=== PATIENT | female | born 1965 | race Caucasian/White ===

== ENCOUNTER 2016-11-17 19:03 | Emergency (ER) | payer OTHER ==
[2016-11-17 19:31] VITALS: BP 146/87; PULSE 95; TEMP 98.3; BMI 29.0
--- NOTE | 2016-11-17 20:08 | PDOC ---
History of Present Illness <Maggi Mackey - Last Filed: 11/17/16 21:51> - History of Present Illness Initial Comments: 11/17/16 22:12 Patient is a 50 year old female with no significant medical hx who is presenting to the ED with one day of nausea, vomiting, diarrhea, headache and chills. Patient reports that her symptoms started last night but worsened today. Today the patient woke up with abdominal cramping and multiple episodes of diarrhea. This evening around 7PM, after arriving in the ED, the patient had four episodes of vomiting. 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 The patient also endorses headaches and chills but no fever. Surgical Hx: x3 Social Hx: Denies alcohol, tobacco, or recreational drug use. Allergies: NKDA <Joanna Singh - Last Filed: 11/17/16 22:17> - General Chief Complaint: Nausea/Vomiting Stated Complaint: VOMITING/HEADACHE/ABD PAIN/CHILLS Time Seen by Provider: 11/17/16 19:43 Past History - Psycho/Social/Smoking Cessation Hx Suicidal Ideation: No Smoking History: Never smoked <Maggi Mackey - Last Filed: 11/17/16 21:51> <Joanna Singh - Last Filed: 11/17/16 22:17> - Past Medical History Allergies/Adverse Reactions: Allergies Allergy/AdvReac Type Severity Reaction Status Date / Time No Known Allergies Allergy Verified 11/17/16 19:29 Review of Systems - Review of Systems Comments:: 11/17/16 22:16 CONSTITUTIONAL: Present: chills Absent: fever, diaphoresis, generalized weakness, malaise, loss of appetite HEENT: Absent: rhinorrhea, nasal congestion, throat pain, throat swelling, difficulty swallowing, mouth swelling, ear pain, eye pain, visual changes CARDIOVASCULAR: Absent: chest pain, syncope, palpitations, irregular heart rate, lightheadedness , peripheral edema RESPIRATORY: Absent: cough, shortness of breath, dyspnea with exertion, orthopnea, wheezing, stridor, hemoptysis GASTROINTESTINAL: Present: abdominal cramping, nausea, vomiting, diarrhea Absent: abdominal distension, constipation, melena, hematochezia GENITOURINARY: Absent: dysuria, frequency, urgency, hesitancy, hematuria, flank pain, genital pain MUSCULOSKELETAL: Absent: myalgia, arthralgia, joint swelling SKIN: Absent: rash, itching, pallor HEMATOLOGIC/IMMUNOLOGIC: Absent: easy bleeding, easy bruising, lymphadenopathy, frequent infections ENDOCRINE: Absent: unexplained weight gain, unexplained weight loss, heat intolerance, cold intolerance NEUROLOGIC: Present: headache Absent: focal weakness or paresthesia, dizziness, unsteady gait, seizure, mental status changes, bladder or bowel incontinence. PSYCHIATRIC: Absent: anxiety, depression, suicidal or homicidal ideation, hallucinations <FranciscoOliverJoanna - Last Filed: 11/17/16 22:17> *Physical Exam - Vital Signs Last Vital Signs Temp Pulse Resp BP Pulse Ox 98.3 F 95 H 18 146/87 98 11/17/16 19:29 11/17/16 19:29 11/17/16 19:29 11/17/16 19:29 11/17/16 19:29 <Maggi Mackey - Last Filed: 11/17/16 21:51> - Vital Signs Last Vital Signs Temp Pulse Resp BP Pulse Ox 98.3 F 95 H 18 146/87 98 11/17/16 19:29 11/17/16 19:29 11/17/16 19:29 11/17/16 19:29 11/17/16 19:29 - Physical Exam Comments: 11/17/16 22:17 GENERAL: Well developed, well nourished. Awake and alert. No acute distress. HEENT: Normocephalic, atraumatic. PERRLA, EOMI. No conjunctival pallor. Sclera are non- icteric. Moist mucous membranes. Oropharynx is clear. NECK: Supple. Full ROM. No JVD. Carotid pulses 2+ and symmetric, without bruits. No thyromegaly. No lymphadenopathy. CARDIOVASCULAR: Regular rate and rhythm. No murmurs, rubs, or gallops. Distal pulses are 2+ and symmetric. PULMONARY: No evidence of respiratory distress. Lungs clear to auscultation bilaterally. No wheezing, rales or rhonchi. ABDOMINAL: Soft. Non-tender. Non-distended. No rebound or guarding. No organomegaly. Normoactive bowel sounds. MUSCULOSKELETAL: Normal range of motion at all joints. No bony deformities or tenderness. No CVA tenderness. EXTREMITIES: No cyanosis. No clubbing. No edema. No calf tenderness. SKIN: Warm and dry. Normal capillary refill. No rashes. No jaundice. NEUROLOGICAL: Alert, awake, appropriate. Cranial nerves 2-12 intact. Normal speech. Gait is normal without ataxia. PSYCHIATRIC: Cooperative. Good eye contact. Appropriate mood and affect. <FranciscoJoanna - Last Filed: 11/17/16 22:17> ED Treatment Course - LABORATORY CBC & Chemistry Diagram: 11/17/16 20:35 11/17/16 20:35 <NarendraMaggi Mara - Last Filed: 11/17/16 21:51> - LABORATORY CBC & Chemistry Diagram: 11/17/16 20:35 11/17/16 20:35 - ADDITIONAL ORDERS Additional order review: Laboratory Results 11/17/16 11/17/16 20:35 20:35 Sodium 142 Potassium 3.8 Chloride 106 Carbon Dioxide 29 Anion Gap 7 L BUN 16 Creatinine 0.5 L Creat Clearance w eGFR > 60 Random Glucose 105 Calcium 8.6 Total Bilirubin 0.5 AST 13 L ALT 27 Alkaline Phosphatase 101 Total Protein 6.9 Albumin 4.1 Lipase 114 Urine Color Ltyellow Urine Appearance Cloudy Urine pH 7.0 Ur Specific [place] 1.016 Urine Protein Negative Urine Glucose (UA) Negative Urine Ketones Negative Urine Blood Negative Urine Nitrite Negative Urine Bilirubin Negative Urine Urobilinogen Negative Ur Leukocyte Esterase 1+ H Urine RBC 2 Urine WBC 9 Ur Epithelial Cells Rare Urine Mucus Rare 11/17/16 20:35 RBC 4.72 MCV 84.9 MCHC 33.6 RDW 13.8 MPV 8.1 Neutrophils % 72.4 Lymphocytes % 21.7 Monocytes % 4.6 Eosinophils % 1.1 Basophils % 0.2 - Medications Given in the ED: ED Medications Discontinued Medications Generic Name Dose Route Start Last Admin Trade Name Freq PRN Reason Stop Dose Admin Acetaminophen 1,000 mg 11/17/16 20:09 11/17/16 20:18 Ofirmev Injection - IVPB 11/17/16 20:10 1,000 mg ONCE ONE Administration Sodium Chloride 1,000 mls @ 1,000 mls/hr 11/17/16 20:09 11/17/16 20:46 Normal Saline - IV 11/17/16 21:08 1,000 mls/hr ASDIR STA Administration Ondansetron HCl 4 mg 11/17/16 20:09 11/17/16 20:18 Zofran Injection IVPB 11/17/16 20:10 4 mg ONCE ONE Administration <Joanna Singh - Last Filed: 11/17/16 22:17> *DC/Admit/Observation/Transfer <Maggi Mackey - Last Filed: 11/17/16 21:51> - Attestations Scribe Attestion: 11/17/16 22:17 Documentation prepared by Joanna Singh, acting as medical receptionist biller for Maggi Mackey MD. <Joanna Singh - Last Filed: 11/17/16 22:17> Diagnosis at time of Disposition: Gastroenteritis - Discharge Dispostion Disposition: HOME Condition at time of disposition: Stable - Referrals Referrals: Carlos Gonsales [Primary Care Provider] - - Patient Instructions Printed Discharge Instructions: DI for Viral Gastroenteritis -- Adult Print Language: ARABIC
[2016-11-17] MEDS ORDERED: ONDANSETRON 4 MG/2 ML VIAL IVPB ONE (20:09)
[2016-11-17] MEDS ORDERED: ACETAMINOPHEN 1000 MG/100 ML VIAL (NON FORMULARY) IVPB ONE (20:09)
[2016-11-17] MEDS ORDERED: SODIUM CHLORIDE 1,000 ML IV STA (20:09)
[2016-11-17] MEDS ORDERED: ACETAMINOPHEN INJECTION 100 ML IVPB ONE (20:16)
[2016-11-17] MEDS ORDERED: ONDANSETRON 4 MG/2 ML VIAL ONE (20:17)
[2016-11-17 21:02] LABS: BASOPHIL 0.2 % (0-2.0); EOSINOPHIL 1.1 % (0-4.5); MCH 28.5 pg (25.7-33.7); MCHC 33.6 g/dl (32.0-36.0); MEAN CELL VOLUME 84.9 fl (80-96); MEAN PLT VOLUME 8.1 fl (7.5-11.1); NEUTROPHILS 72.4 % (42.8-82.8); PLATELET COUNT 247 K/MM3 (134-434); RDW 13.8 % (11.6-15.6); WHITE BLOOD COUNT 6.6 K/mm3 (4.0-10.0)
[2016-11-17 21:05] LABS: URINE APPEARANCE CLOUDY; URINE BILIRUBIN NEGATIVE (NEGATIVE); URINE BLOOD NEGATIVE (NEGATIVE); URINE COLOR LTYELLOW; URINE GLUCOSE (UA) NEGATIVE (NEGATIVE); URINE KETONE NEGATIVE (NEGATIVE); URINE NITRITE NEGATIVE (NEGATIVE); URINE PROTEIN NEGATIVE (NEGATIVE); URINE UROBILINOGEN NEGATIVE E.U./dl (0.2-1.0)
[2016-11-17 21:09] LABS: URINE LEUK ESTERASE 1+ (NEGATIVE)
[2016-11-17 21:10] LABS: URINE MUCUS RARE; URINE RBC 2 /hpf (0-3); URINE WBC 9 /hpf (3-5)
[2016-11-17 21:33] LABS: ALBUMIN 4.1 g/dl (3.4-5.0); ANION GAP 7 (8-16); CALCIUM 8.6 mg/dL (8.5-10.1); CO2 29 mmol/L (21-32); CREATININE 0.5 mg/dL (0.55-1.02); GLUCOSE,RANDOM 105 mg/dL (74-106); SGOT/AST 13 U/L (15-37); SGPT/ALT 27 U/L (12-78)
[2016-11-17 21:34] LABS: ALK PHOS 101 U/L (45-117); BILIRUBIN,TOTAL 0.5 mg/dL (0.2-1.0); TOT PROT 6.9 g/dl (6.4-8.2)
--- NOTE | 2016-11-18 22:55 | EKG ---
Test Reason : Blood Pressure : / mmHG Vent. Rate : 089 BPM Atrial Rate : 089 BPM P-R Int : 216 ms QRS Dur : 104 ms QT Int : 384 ms P-R-T Axes : 058 043 002 degrees QTc Int : 467 ms SINUS RHYTHM WITH 1ST DEGREE A-V BLOCK INCOMPLETE RIGHT BUNDLE BRANCH BLOCK BORDERLINE ECG WHEN COMPARED WITH ECG OF 22-MAY-2009 01:14, NO SIGNIFICANT CHANGE WAS FOUND Confirmed by KATIE GRANDE MD ([id number]) on 11/18/2016 10:55:43 PM Referred By: Confirmed By:KATIE GRANDE MD
== END 2016-11-17 21:54 | disposition home or self-care (01) ==
LOC: JER 19:03
PROC: 3E033NZ Introduction of Analgesics, Hypnotics, Sedatives into Peripheral Vein, Percutaneous Approach (ICD-10-PCS; principal; 2016-11-17)
PROC: 3E033GC Introduction of Other Therapeutic Substance into Peripheral Vein, Percutaneous Approach (ICD-10-PCS; 2016-11-17)
DX: K52.9 Noninfective gastroenteritis and colitis, unspecified (principal)
CPT/HCPCS: 36415; 80053; 81003; 81015; 83690; 85025; 93005; 93010; 96374; 96375; 99282-25

== ENCOUNTER → 2017-08-17 | Day surgery (SDC) | payer OTHER ==
--- NOTE | 2017-08-18 13:25 | PATH ---
Surgical Pathology Report Patient Name: MARI MCCALLUM [facility]. Rec. #: [id number] /Age/Gender: 1965 (Age: 51) / F Account: [id number] Location: [facility] Taken: 08/17/2017 Received: 08/17/2017 Reported: 08/18/2017 Physicians: Radha Willett CNM Specimen(s) Received A: LEFT BREAST CORE BIOPSY SUBAREOLAR B: LEFT BREAST CORE BIOPSY AT 3:00 Clinical History Nonpalpable lesion Ultrasound findings: Probably benign Final Diagnosis A. LEFT BREAST, SUBAREOLAR, ULTRASOUND GUIDED NEEDLE CORE BIOPSY: BENIGN BREAST TISSUE WITH FIBROCYSTIC CHANGES INCLUDING STROMAL FIBROSIS AND DUCTAL DILATATION. B. LEFT BREAST, 3:00, ULTRASOUND GUIDED NEEDLE CORE BIOPSY: BENIGN BREAST TISSUE WITH STROMAL FIBROSIS AND FIBROADENOMATOID CHANGES. Electronically Signed Maxx Phelps M.D. Gross Description A. Received in formalin labeled "left subareolar," are 4 mccain-yellow fragments of fibroadipose tissue ranging from 0.1-1.0 cm in length and averaging 0.1 cm diameter. The specimens are submitted in toto in one cassette. B. Received in formalin labeled "left 3:00," are 6 mccain-yellow fragments of fibroadipose tissue ranging from 0.2-1.0 cm in length and averaging 0.1 cm in diameter. The specimens are submitted in toto in one cassette. Total formalin fixation time: Between 8-15 hours 08/17/201708/17/2017
== END | disposition home or self-care (01) ==
LOC: JRADUS-SUR 08:07
PROVIDERS: ATTEND Midwife
PROC: 0HBU3ZX Excision of Left Breast, Percutaneous Approach, Diagnostic (ICD-10-PCS; principal; 2017-08-17)
DX: D24.2 Benign neoplasm of left breast (principal)
CPT/HCPCS: 19083; 19084; 87899; A4648

== ENCOUNTER 2017-11-10 10:05 | Emergency (ER) | payer OTHER ==
[2017-11-10 10:18] VITALS: BMI 33.4
[2017-11-10] MEDS ORDERED: SODIUM CHLORIDE 1,000 ML IV ONE (10:44)
[2017-11-10] MEDS ORDERED: morphine CARPU-JECT 4 MG/1 ML DISP.SYRIN IVPUSH ONE (10:47)
[2017-11-10] MEDS ORDERED: morphine SULFATE 4 MG/ML VIAL ONE (10:51)
[2017-11-10 11:12] LABS: BASO % 0.8 % (0-2.0); EOS % 0.5 % (0-4.5); HEMOGLOBIN 11.3 GM/dL (10.7-15.3); LYMPH % 15.3 % (8-40); MCH 27.9 pg (25.7-33.7); MCHC 34.3 g/dl (32.0-36.0); MEAN CELL VOLUME 81.3 fl (80-96); MEAN PLT VOLUME 7.4 fl (7.5-11.1); MONO % 6.2 % (3.8-10.2); NEUT % 77.2 % (42.8-82.8); PLATELET COUNT 326 K/MM3 (134-434); RBC 4.06 M/mm3 (3.60-5.2); RDW 13.6 % (11.6-15.6); WHITE BLOOD COUNT 8.4 K/mm3 (4.0-10.0)
[2017-11-10 11:13] LABS: URINE APPEARANCE SLCLOUDY; URINE BILIRUBIN NEGATIVE (<2.0 mg/dL); URINE BLOOD NEGATIVE (NEGATIVE); URINE COLOR DKYELLOW; URINE GLUCOSE (UA) NEGATIVE (NEGATIVE); URINE KETONE NEGATIVE (NEGATIVE); URINE LEUK ESTERASE NEGATIVE (NEGATIVE); URINE NITRITE NEGATIVE (NEGATIVE); URINE PROTEIN NEGATIVE (NEGATIVE); URINE UROBILINOGEN 4.0 E.U/dl mg/dL (0.2-1.0)
--- NOTE | 2017-11-10 11:22 | PDOC ---
History of Present Illness - General History Source: Patient Exam Limitations: No Limitations - History of Present Illness Initial Comments: 11/10/17 11:33 The patient is a 51 year old female with no significant past medical history who presents to the ED with complaints of worsening LLQ pain for the past three months. The patient states the pain began as intermittent but got significantly worse over the past two days. She complains of a non-radiating crampy pain that is 8/10 in severity. It is worse with eating and deep inspiration, and has been accompanied by constipation and headaches. She reports a 16 lb weight loss when she went to her PCP in July. She reports a decreased appetite but denies any urinary symptoms. She also reports a recent visit to [place] in September for 12 days. The patient adds that she saw her PCP last Thursday regarding her symptoms and is waiting to hear back regarding her blood test results. Denies any fevers or chills. PCP: Dr. Rodriguez <Soco Johnson - Last Filed: 11/10/17 11:43> <Park Chen - Last Filed: 11/10/17 15:36> <Alvaro Flores - Last Filed: 11/10/17 17:20> - General Chief Complaint: Pain, Acute Stated Complaint: LT SIDE PAIN Time Seen by Provider: 11/10/17 10:42 Past History <Soco Johnson - Last Filed: 11/10/17 11:43> <Park Chen - Last Filed: 11/10/17 15:36> - Past Medical History COPD: No DVT: No Dementia: No - Immunization History Immunization Up to Date: Yes - Suicide/Smoking/Psychosocial Hx Smoking History: Never smoked Have you smoked in the past 12 months: No Information on smoking cessation initiated: No Hx Alcohol Use: No Drug/Substance Use Hx: No Substance Use Type: None <Alvaro Flores - Last Filed: 11/10/17 17:20> - Past Medical History Allergies/Adverse Reactions: Allergies Allergy/AdvReac Type Severity Reaction Status Date / Time No Known Allergies Allergy Verified 11/10/17 10:14 Home Medications: Ambulatory Orders NK [No Known Home Medication] 11/10/17 Review of Systems - Review of Systems Constitutional: Yes: Unintentional Wgt. Loss. No: Chills, Fever, Night Sweats HEENTM: No: Recent change in vision Respiratory: No: Cough, Shortness of Breath Cardiac (ROS): No: Chest Pain ABD/GI: Yes: Constipated, Poor Appetite. No: Nausea, Vomiting : No: Burning, Dysuria, Frequency Neurological: No: Headache All Other Systems: Reviewed and Negative <Alvaro Flores - Last Filed: 11/10/17 17:20> *Physical Exam - Vital Signs Last Vital Signs Temp Pulse Resp BP Pulse Ox 98.4 F 91 H 18 109/64 100 11/10/17 10:14 11/10/17 10:14 11/10/17 10:14 11/10/17 10:14 11/10/17 10:14 - Physical Exam Comments: 11/10/17 11:34 GENERAL: The patient is awake, alert, and fully oriented, in no acute distress. HEAD: Normal with no signs of trauma. EYES: Pupils equal, round and reactive to light, extraocular movements intact, sclera anicteric, conjunctiva clear with no pallor. ENT: Ears normal, nares patent, oropharynx clear without exudates. Moist mucous membranes. NECK: Normal range of motion, supple without lymphadenopathy, JVD, or masses. LUNGS: Breath sounds equal, clear to auscultation bilaterally. No wheeze/ crackles. HEART: Regular rate and rhythm, normal S1 and S2 without murmur or rub. ABDOMEN: Fullness in LLQ, tender with guarding, referred pain with rebound. Soft /nontender/nondistended. BS wnl. No palpable masses. No hepatosplenomegaly. EXTREMITIES: Normal range of motion, no edema. No clubbing or cyanosis. No cords, erythema, or tenderness. NEUROLOGICAL: Cranial nerves II through XII grossly intact. Normal speech, normal gait. PSYCH: Normal mood, normal affect. SKIN: Warm, Dry, normal turgor, no rashes or lesions noted. <AlexSoco - Last Filed: 11/10/17 11:43> - Vital Signs Last Vital Signs Temp Pulse Resp BP Pulse Ox 98.9 F 76 18 127/78 98 11/10/17 15:11 11/10/17 15:11 11/10/17 15:11 11/10/17 15:11 11/10/17 15:11 <Park Chen - Last Filed: 11/10/17 15:36> - Vital Signs Last Vital Signs Temp Pulse Resp BP Pulse Ox 98.4 F 91 H 18 109/64 100 11/10/17 10:14 11/10/17 10:14 11/10/17 10:14 11/10/17 10:14 11/10/17 10:14 <Alvaro Flores - Last Filed: 11/10/17 17:20> Heart Score/ECG Review #1 General ECG Interpretation: Sinus Rhythm, Normal Rate (82), Normal Intervals ( qtc 436), No acute ischemic changes (TWI III/AVF, V1-V4) <Alvaro Flores - Last Filed: 11/10/17 17:20> ED Treatment Course - LABORATORY CBC & Chemistry Diagram: 11/10/17 11:00 11/10/17 11:00 - ADDITIONAL ORDERS Additional order review: Laboratory Results 11/10/17 11/10/17 11:00 11:00 PT with INR 14.10 H INR 1.25 H Urine Color Dkyellow Urine Appearance Slcloudy Urine pH 5.0 D Ur Specific [place] 1.023 Urine Protein Negative Urine Glucose (UA) Negative Urine Ketones Negative Urine Blood Negative Urine Nitrite Negative Urine Bilirubin Negative Urine Urobilinogen 4.0 e.u/dl H Ur Leukocyte Esterase Negative 11/10/17 11:00 RBC 4.06 MCV 81.3 MCHC 34.3 RDW 13.6 MPV 7.4 L Neutrophils % 77.2 Lymphocytes % 15.3 D Monocytes % 6.2 Eosinophils % 0.5 Basophils % 0.8 D - Medications Given in the ED: ED Medications Discontinued Medications Generic Name Dose Route Start Last Admin Trade Name Freq PRN Reason Stop Dose Admin Morphine Sulfate 4 mg 11/10/17 10:47 11/10/17 11:09 Morphine Injection - IVPUSH 11/10/17 10:48 4 mg ONCE ONE Administration <Soco Johnson - Last Filed: 11/10/17 11:43> - LABORATORY CBC & Chemistry Diagram: 11/10/17 11:00 11/10/17 11:00 - ADDITIONAL ORDERS Additional order review: Laboratory Results 11/10/17 11/10/17 11/10/17 11:11 11:00 11:00 PT with INR INR Sodium Potassium Chloride Carbon Dioxide Anion Gap BUN Creatinine Creat Clearance w eGFR Random Glucose Lactic Acid 0.8 Calcium Magnesium Total Bilirubin AST ALT Alkaline Phosphatase Total Protein Albumin Lipase Serum , Qual Negative Urine Color Urine Appearance Urine pH Ur Specific [place] Urine Protein Urine Glucose (UA) Urine Ketones Urine Blood Urine Nitrite Urine Bilirubin Urine Urobilinogen Ur Leukocyte Esterase Blood Type B POSITIVE Antibody Screen Negative 11/10/17 11/10/17 11/10/17 11:00 11:00 11:00 PT with INR 14.10 H INR 1.25 H Sodium 138 Potassium 3.9 Chloride 104 Carbon Dioxide 28 Anion Gap 6 L BUN 16 Creatinine 0.5 L Creat Clearance w eGFR > 60 Random Glucose 87 Lactic Acid Calcium 8.4 L Magnesium 2.3 Total Bilirubin 0.4 AST 12 L ALT 15 Alkaline Phosphatase 103 Total Protein 6.9 Albumin 3.3 L Lipase 96 Serum , Qual Urine Color Dkyellow Urine Appearance Slcloudy Urine pH 5.0 D Ur Specific [place] 1.023 Urine Protein Negative Urine Glucose (UA) Negative Urine Ketones Negative Urine Blood Negative Urine Nitrite Negative Urine Bilirubin Negative Urine Urobilinogen 4.0 e.u/dl H Ur Leukocyte Esterase Negative Blood Type Antibody Screen 11/10/17 11:00 RBC 4.06 MCV 81.3 MCHC 34.3 RDW 13.6 MPV 7.4 L Neutrophils % 77.2 Lymphocytes % 15.3 D Monocytes % 6.2 Eosinophils % 0.5 Basophils % 0.8 D - Medications Given in the ED: ED Medications Discontinued Medications Generic Name Dose Route Start Last Admin Trade Name Freq PRN Reason Stop Dose Admin Sodium Chloride 1,000 mls @ 1,000 mls/hr 11/10/17 10:44 11/10/17 11:08 Normal Saline - IV 11/10/17 11:43 1,000 mls/hr ONCE ONE Administration Morphine Sulfate 4 mg 11/10/17 10:47 11/10/17 11:09 Morphine Injection - IVPUSH 11/10/17 10:48 4 mg ONCE ONE Administration <Park Chen - Last Filed: 11/10/17 15:36> - LABORATORY CBC & Chemistry Diagram: 11/10/17 11:00 11/10/17 11:00 - RADIOLOGY Radiology Studies Ordered: Category Date Time Status ABDOMEN & PELVIS CT WITH CONTR [CT] Stat CT Scan 11/10/17 10:46 Ordered - Medications Given in the ED: ED Medications Discontinued Medications Generic Name Dose Route Start Last Admin Trade Name Deborah PRN Reason Stop Dose Admin Morphine Sulfate 4 mg 11/10/17 10:47 11/10/17 11:09 Morphine Injection - IVPUSH 11/10/17 10:48 4 mg ONCE ONE Administration <Alvaro Flores - Last Filed: 11/10/17 17:20> Medical Decision Making - Medical Decision Making 11/10/17 15:[address] Otto of radiology. <Park Chen - Last Filed: 11/10/17 15:36> - Medical Decision Making 11/10/17 11:24 A portion of this note was documented by scribe services under my direction. I have reviewed the details of the note, within reason, and agree with the documentation with the following case summary and management plan written by me. 51-year-old female with no significant past medical history presents for evaluation of left lower quadrant pain. Patient has had discomfort in this area for several months, worsened over the last few days. Reports decreased appetite and weight loss over the last few months, intermittent constipation without bloody stool or diarrhea. No fevers or chills. Never had a colonoscopy. Saw Dr. Rodriguez for the first time last week and was scheduled for outpatient CAT scan next week and GI follow-up next month. Afebrile Vital signs normal Generally well-appearing Abdomen is soft and nondistended, tender with exquisite guarding and rebound in the left lower quadrant, question palpable fullness 51-year-old female with worsening left lower quadrant pain, peritoneal findings on examination. Presentation is concerning for infectious/inflammatory process, rule out neoplasm. Labs, urinalysis Pain control, IV fluids CT of the abdomen and pelvis Reassess 11/10/17 12:13 No leukocytosis, chemistries including LFTs and lipase, urinalysis within normal limits. Awaiting CAT scan. feels much better after morphine. 11/10/17 16:27 Descending colon wall thickening with 4cm surrounding collection suspicious for perforation. Remains HD stable, well appearing, pain improved. Started abx, admitted to [facility] team covering Dr. Rodriguez. Signout given to Dr. Arroyo 11/10/17 17:03 Admitting team discussed with Gen Surg [employer] systems integration specialist Dr. Vásquez, requesting transfer for colorectal onc evaluation given suspicion for neoplasm. Case discussed with Gen Surg at [facility], Dr. Richards, who accepts for transfer to ED. Case discussed with ED attending Dr. Staples. <Alvaro Flores - Last Filed: 11/10/17 17:20> *DC/Admit/Observation/Transfer - Attestations Scribe Attestion: 11/10/17 11:34 Documentation prepared by Soco Johnson, acting as vice president medical affairs for Alvaro Flores MD. <Soco Johnson - Last Filed: 11/10/17 11:43> <Park Chen - Last Filed: 11/10/17 15:36> - Discharge Dispostion Admit: Yes - Transfer to Acute Care Facility Receiving Facility: [facility] Accepting Physician:: Maurice (surg)Jhoan (ER) <Alvaro Flores - Last Filed: 11/10/17 17:20> Diagnosis at time of Disposition: Abdominal pain, left lower quadrant - Discharge Dispostion Condition at time of disposition: Fair - Referrals Referrals: Thu Shine MD [Primary Care Provider] -
[2017-11-10 11:25] LABS: INR 1.25 (0.82-1.09); PROTHROMBIN TIME (PATIENT) 14.1 SEC (9.7-13.0)
[2017-11-10 11:52] LABS: ALBUMIN 3.3 g/dl (3.4-5.0); ANION GAP 6 (8-16); BLOOD UREA NITROGEN 16 mg/dL (7-18); CALCIUM 8.4 mg/dL (8.5-10.1); CHLORIDE 104 mmol/L (98-107); CO2 28 mmol/L (21-32); GLUCOSE,RANDOM 87 mg/dL (74-106); LIPASE 96 U/L (73-393); MAGNESIUM 2.3 mg/dL (1.8-2.4); POTASSIUM 3.9 mmol/L (3.5-5.1); SGOT/AST 12 U/L (15-37); SODIUM 138 mmol/L (136-145)
[2017-11-10 11:54] LABS: ALK PHOS 103 U/L (45-117); BILIRUBIN,TOTAL 0.4 mg/dL (0.2-1.0); CREATININE 0.5 mg/dL (0.55-1.02); SGPT/ALT 15 U/L (12-78); TOT PROT 6.9 g/dl (6.4-8.2)
--- NOTE | 2017-11-10 13:39 | EKG ---
Test Reason : Blood Pressure : / mmHG Vent. Rate : 082 BPM Atrial Rate : 082 BPM P-R Int : 180 ms QRS Dur : 098 ms QT Int : 374 ms P-R-T Axes : 056 017 001 degrees QTc Int : 436 ms NORMAL SINUS RHYTHM LOW VOLTAGE QRS CANNOT RULE OUT ANTERIOR INFARCT , AGE UNDETERMINED ABNORMAL ECG WHEN COMPARED WITH ECG OF 17-NOV-2016 21:08, [place] INTERVAL HAS DECREASED Confirmed by MD REANNA, KEITH ([id number]) on 11/10/2017 1:38:38 PM Referred By: Confirmed By:KEITH FORTE MD
[2017-11-10] MEDS ORDERED: PIPERACILLIN/TAZOB 4.5 GM 4.5 GM in DEXTROSE 5%-WATER 100 ML IVPB ONE (15:36)
[2017-11-10] MEDS ORDERED: PIPERACILLIN/TAZOB 4.5 GM 4.5 GM/100 ML BAG IVPB ONE (16:10)
--- NOTE | 2017-11-10 16:11 | HP ---
CHIEF COMPLAINT: Ab pain PCP: Dr. Rodriguez HISTORY OF PRESENT ILLNESS: 51 yo female with no significant pmh who presents with worsening LLQ pain over last two days in the setting of three months of progressive LLQ pain and constipation. Pt endorses 30 lb weight loss since march of last year. Pt states she began having LLQ pain 3 months ago, which she describe as sharp and crampy, with associated L flank pain, worsened by eating and deep inspiration. Pt states this pain has become distinctly worse in the last two days, rating it 8/10 in severity, sharp/crampy with no radiation. Pt endorses chronic constipation for last three months, as well as decreased stool caliber. Pt states her stools have otherwise been normal, with no blood, color changes, pain with defection or diarrhea. Pt also states her appetite has been decreasing progressively over last few months as well. No recent diet changes. Recently visited [place] in September. No prior hx of GI symptoms and no family hx of CA or GI conditions. Denies any MOLINA, CP, SOB, cough, f/c/n/v, LE edema, focal neuro deficits. Denies melena, hematochezia, dysuria or changes in bladder habits. Recently seen by PCP last week for same symptoms, awaiting blood tests and outpt imaging evaluation. ER course was notable for: (1)Morphine 4mg IV, NS 1L (2)Normal labs, vitals (3) Recent Travel: [place] in september for 12 days PAST MEDICAL HISTORY: None PAST SURGICAL HISTORY: C-sections x3 Social History: Smoking:No Alcohol: no Drugs: no Family History: No family hx of any conditions Allergies No Known Allergies Allergy (Verified 11/10/17 10:14) HOME MEDICATIONS: Home Medications Medication Instructions Recorded NK [No Known Home Medication] 11/10/17 REVIEW OF SYSTEMS CONSTITUTIONAL: loss of appetite, weight change Absent: fever, chills, diaphoresis, generalized weakness, malaise, HEENT: Absent: rhinorrhea, nasal congestion, throat pain, throat swelling, difficulty swallowing, mouth swelling, ear pain, eye pain, visual changes CARDIOVASCULAR: Absent: chest pain, syncope, palpitations, irregular heart rate, lightheadedness , peripheral edema RESPIRATORY: Absent: cough, shortness of breath, dyspnea with exertion, orthopnea, wheezing, stridor, hemoptysis GASTROINTESTINAL: abdominal pain, constipation, Absent: abdominal distension, nausea, vomiting, diarrhea, melena, hematochezia GENITOURINARY: flank pain, Absent: dysuria, frequency, urgency, hesitancy, hematuria, genital pain MUSCULOSKELETAL: Absent: myalgia, arthralgia, joint swelling, back pain, neck pain SKIN: Absent: rash, itching, pallor HEMATOLOGIC/IMMUNOLOGIC: Absent: easy bleeding, easy bruising, lymphadenopathy, frequent infections ENDOCRINE: Absent: unexplained weight gain, unexplained weight loss, heat intolerance, cold intolerance NEUROLOGIC: Absent: headache, focal weakness or paresthesias, dizziness, unsteady gait, seizure, mental status changes, bladder or bowel incontinence PHYSICAL EXAMINATION Vital Signs - 24 hr 11/10/17 11/10/17 10:14 15:11 Temperature 98.4 F 98.9 F Pulse Rate 91 H Pulse Rate [ 76 Left Radial] Respiratory 18 18 Rate Blood Pressure 109/64 Blood Pressure 127/78 [Right Arm] O2 Sat by Pulse 100 98 Oximetry (%) GENERAL: Young woman, NAD, A&Ox3 HEAD: Normal with no signs of trauma. EYES: Pupils equal, round and reactive to light, extraocular movements intact, sclera anicteric, conjunctiva clear. No lid lag. EARS, NOSE, THROAT: Ears normal, nares patent, oropharynx clear without exudates. Moist mucous membranes. NECK: Normal range of motion, supple without lymphadenopathy, JVD, or masses. LUNGS: Breath sounds equal, clear to auscultation bilaterally. No wheezes, and no crackles. No accessory muscle use. HEART: Regular rate and rhythm, normal S1 and S2 without murmur, rub or gallop. ABDOMEN: TTP in LLQ, fullness in the LLQ. Positive rebound tenderness on L side. Soft, non-distended. normoactive bowel sounds, no guarding, no rebound, no masses. No hepatomegaly or splenomegaly. MUSCULOSKELETAL: Normal range of motion at all joints. No bony deformities or tenderness. L CVA tenderness noted UPPER EXTREMITIES: 2+ pulses, warm, well-perfused. No cyanosis. No clubbing. No peripheral edema. LOWER EXTREMITIES: 2+ pulses, warm, well-perfused. No calf tenderness. No peripheral edema. NEUROLOGICAL: Cranial nerves II-XII intact. Normal speech. Normal gait. PSYCHIATRIC: Cooperative. Good eye contact. Appropriate mood and affect. Laboratory Results - last 24 hr CBC, BMP 11/10/17 11:00 11/10/17 11:00 11/10/17 11/10/17 11/10/17 11:00 11:00 11:00 WBC 8.4 RBC 4.06 Hgb 11.3 D Hct 33.0 D MCV 81.3 MCH 27.9 MCHC 34.3 RDW 13.6 Plt Count 326 D MPV 7.4 L Neutrophils % 77.2 Lymphocytes % 15.3 D Monocytes % 6.2 Eosinophils % 0.5 Basophils % 0.8 D PT with INR 14.10 H INR 1.25 H Sodium Potassium Chloride Carbon Dioxide Anion Gap BUN Creatinine Creat Clearance w eGFR Random Glucose Lactic Acid Calcium Magnesium Total Bilirubin AST ALT Alkaline Phosphatase Total Protein Albumin Lipase Serum , Qual Urine Color Dkyellow Urine Appearance Slcloudy Urine pH 5.0 D Ur Specific [place] 1.023 Urine Protein Negative Urine Glucose (UA) Negative Urine Ketones Negative Urine Blood Negative Urine Nitrite Negative Urine Bilirubin Negative Urine Urobilinogen 4.0 e.u/dl H Ur Leukocyte Esterase Negative Blood Type Antibody Screen 11/10/17 11/10/17 11/10/17 11:00 11:00 11:00 WBC RBC Hgb Hct MCV MCH MCHC RDW Plt Count MPV Neutrophils % Lymphocytes % Monocytes % Eosinophils % Basophils % PT with INR INR Sodium 138 Potassium 3.9 Chloride 104 Carbon Dioxide 28 Anion Gap 6 L BUN 16 Creatinine 0.5 L Creat Clearance w eGFR > 60 Random Glucose 87 Lactic Acid 0.8 Calcium 8.4 L Magnesium 2.3 Total Bilirubin 0.4 AST 12 L ALT 15 Alkaline Phosphatase 103 Total Protein 6.9 Albumin 3.3 L Lipase 96 Serum , Qual Urine Color Urine Appearance Urine pH Ur Specific [place] Urine Protein Urine Glucose (UA) Urine Ketones Urine Blood Urine Nitrite Urine Bilirubin Urine Urobilinogen Ur Leukocyte Esterase Blood Type B POSITIVE Antibody Screen Negative 11/10/17 11:11 WBC RBC Hgb Hct MCV MCH MCHC RDW Plt Count MPV Neutrophils % Lymphocytes % Monocytes % Eosinophils % Basophils % PT with INR INR Sodium Potassium Chloride Carbon Dioxide Anion Gap BUN Creatinine Creat Clearance w eGFR Random Glucose Lactic Acid Calcium Magnesium Total Bilirubin AST ALT Alkaline Phosphatase Total Protein Albumin Lipase Serum , Qual Negative Urine Color Urine Appearance Urine pH Ur Specific [place] Urine Protein Urine Glucose (UA) Urine Ketones Urine Blood Urine Nitrite Urine Bilirubin Urine Urobilinogen Ur Leukocyte Esterase Blood Type Antibody Screen EKG: NSR, RATE 82, qtc 436, TWIs in III/AVF, V1-V4 Ab/pelvis CT 11/10 - 1. Irregular, masslike wall thickening centered in the distal descending colon as described above is extremely suspicious for malignant neoplasm. Contained perforation with an approximately 4.5 x 4.0 x 4.3 cm left lower quadrant collection and possible sinus tract. 2. Left lower quadrant mesenteric and retroperitoneal lymphadenopathy. 3. Several hepatic cystic lesions measuring up to 3.6 x 5.5 cm. Multiple subcentimeter hypodense liver lesions are indeterminant. Complete characterization requires multiphase contrast-enhanced MRI or CT of the liver. 4. Please refer to the report above for other findings. ASSESSMENT/PLAN: 51 yo female with no significant pmh who presents with worsening LLQ pain over last two days in the setting of three months of progressive LLQ pain and constipation. Pt endorses 30 lb weight loss since march of last year. #LLQ mass/descending colon perforation - CT confirmed - IVFs - GI, ID, ONC and General surgery consult - abx coverage - Morphine IV for pain control - Zofran for N/V - NPO, bowel rest #Constipation - likely secondary to possible neoplasm in descending colon #Weight loss - 30lbs over since mar 2017 - NPO for now - likely secondary to suspected neoplasm FEN IVFS Daily lytes NPO PPX HSQ PPI Plan discussed with attending, Dr. Tracy Bledsoe, PGY1 Hospitalist Screening - Colonoscopy Questionnaire Colonoscopy Questionnaire: Colonoscopy Questionnaire
[2017-11-10] MEDS ORDERED: ACETAMINOPHEN INJECTION 100 ML IVPB ONE (17:48)
[2017-11-10] MEDS ORDERED: ACETAMINOPHEN 1000 MG/100 ML VIAL (NON FORMULARY) IVPB ONE (18:00)
[2017-11-10 19:15] VITALS: BP 116/62; PULSE 78; TEMP 99.2
== END 2017-11-10 19:14 | disposition short-term general hospital (02) ==
LOC: JER 10:05 → JERBED 16:34 → UNDOADMIN 16:34 → JER 19:14
PROC: 3E0337Z Introduction of Electrolytic and Water Balance Substance into Peripheral Vein, Percutaneous Approach (ICD-10-PCS; principal; 2017-11-10)
PROC: 3E03329 Introduction of Other Anti-infective into Peripheral Vein, Percutaneous Approach (ICD-10-PCS; 2017-11-10)
PROC: 3E033NZ Introduction of Analgesics, Hypnotics, Sedatives into Peripheral Vein, Percutaneous Approach (ICD-10-PCS; 2017-11-10)
PROC: 3E033NZ Introduction of Analgesics, Hypnotics, Sedatives into Peripheral Vein, Percutaneous Approach (ICD-10-PCS; 2017-11-10)
DX: R10.32 Left lower quadrant pain (principal); K59.00 Constipation, unspecified; R63.4 Abnormal weight loss
CPT/HCPCS: 36415; 74177-TC; 80053; 81003; 83605; 83690; 83735; 84703; 85025; 85610; 86850; 86900; 86901; 93005; 93010; 96361; 96365; 96375; 99285-25; J0131; J7030

== ENCOUNTER 2017-12-02 11:08 | Emergency (ER) | payer OTHER ==
[2017-12-02 11:26] VITALS: BMI 26.4
--- NOTE | 2017-12-02 11:36 | PDOC ---
History of Present Illness - History of Present Illness Initial Comments: 12/02/17 11:55 The patient is a 52 year old female, with a significant past medical history of colon CA (recently diagnosed s/p hemicolectomy on 11/18/17), who presents to the emergency department with sudden onset of nausea and lightheadedness this morning while lying in bed. She reports feeling short of breath at the onset of her symptoms, but denies SOB now. She also reports pain to her left anterior shoulder and explicitly states the pain is not in my chest. She states she has been feeling well since her discharge from the hospital on 11/24/17. She reports gradually increasing her meal sizes, as well as, good bowel movements and passing gas from above and below since her discharge. She states she felt as if she were going to faint this morning. The son at bedside acts as digital traffic coordinator and partial historian. He reports his mother is scheduled to start chemotherapy on December 22. She denies chest pain, headache and dizziness. She denies fever, chills, abdominal pain, diarrhea, vomiting, and constipation. She denies dysuria, frequency, urgency and hematuria. Allergies: NKDA Social history: Denies toxic habits PCP: Dr. Rodriguez <Jane Terrazas - Last Filed: 12/02/17 11:54> - General History Source: Patient Exam Limitations: No Limitations <Dori Mir - Last Filed: 12/03/17 12:03> - General Chief Complaint: Nausea Stated Complaint: NAUSEA Time Seen by Provider: 12/02/17 11:35 Past History <Jane Terrazas - Last Filed: 12/02/17 11:54> - Past Medical History Cancer: Yes (colon) COPD: No DVT: No Dementia: No - Immunization History Immunization Up to Date: Yes - Suicide/Smoking/Psychosocial Hx Smoking History: Never smoked Have you smoked in the past 12 months: No Hx Alcohol Use: No Drug/Substance Use Hx: No Substance Use Type: None <Dori Mir - Last Filed: 12/03/17 12:03> - Past Medical History Allergies/Adverse Reactions: Allergies Allergy/AdvReac Type Severity Reaction Status Date / Time No Known Allergies Allergy Verified 12/02/17 11:23 Home Medications: Ambulatory Orders Enoxaparin [Lovenox -] 40 mg SQ DAILY 12/02/17 Review of Systems - Review of Systems Able to Perform ROS?: Yes Comments:: 12/02/17 11:56 CONSTITUTIONAL: Absent: fever, no chills, no fatigue EYES: Absent: visual changes ENT: Absent: ear pain, no sore throat CARDIOVASCULAR: (+) lightheaded, Absent: chest pain, no palpitations RESPIRATORY: Absent: cough, no SOB GASTROINTESTINAL: (+) nausea, Absent: abdominal pain, no vomiting, no constipation, no diarrhea GENITOURINARY: Absent: dysuria, no frequency, no hematuria MUSCULOSKELETAL: (+) left anterior shoulder pain. Absent: back pain, no myalgia SKIN: Absent: rash NEURO: Absent: headache <Jane Terrazas - Last Filed: 12/02/17 11:54> *Physical Exam - Vital Signs Last Vital Signs Temp Pulse Resp BP Pulse Ox 98.6 F 82 18 111/71 100 12/02/17 11:23 12/02/17 11:23 12/02/17 11:23 12/02/17 11:23 12/02/17 11:23 - Physical Exam Comments: 12/02/17 12:00 GENERAL: The patient is in no acute distress. HEAD: Normal with no signs of trauma. EYES: PERRLA, EOMI, sclera anicteric, conjunctiva clear. ENT: Ears normal, nares patent, oropharynx clear without exudates. Moist mucous membranes. NECK: Normal range of motion, supple without lymphadenopathy, JVD, or masses. LUNGS: Breath sounds equal, clear to auscultation bilaterally. No wheezes, and no crackles. HEART:Regular rate and rhythm, normal S1 and S2 without murmur, rub or gallop. ABDOMEN: Soft, nontender, normoactive bowel sounds. No guarding, no rebound. No masses palpable. EXTREMITIES: Normal range of motion, no edema. No clubbing or cyanosis. No erythema, or tenderness. NEUROLOGICAL: Cranial nerves II through XII grossly intact. Normal speech. No focal neurological deficits. MUSCULOSKELETAL: Back non-tender to palpation, no CVA tenderness SKIN: (+) well healed surgical scars to abdomen. Warm, Dry, normal turgor, no rashes or lesions noted. <Jane Terrazas - Last Filed: 12/02/17 11:54> - Vital Signs Last Vital Signs Temp Pulse Resp BP Pulse Ox 98.6 F 82 18 111/71 100 12/02/17 11:23 12/02/17 11:23 12/02/17 11:23 12/02/17 11:23 12/02/17 11:23 <Dori Mir - Last Filed: 12/03/17 12:03> ED Treatment Course - LABORATORY CBC & Chemistry Diagram: 12/02/17 12:16 12/02/17 12:16 <Dori Mir - Last Filed: 12/03/17 12:03> Medical Decision Making - Medical Decision Making Mr. Mcmullen 52-year-old female who is otherwise prior to a recent diagnosis of colon cancer healthy who presents to the emergency department with a complaint of lightheadedness. Patient states that she is almost 2 weeks status post left hemicolectomy for perforated colon mass. Patient states she has been able to tolerate foods and liquids, has had normal bowel movements, passing gas, has minimal pain in the abdomen. This morning she awoke and noted that she felt lightheaded/dizzy. She denies vertigo. She denies headache, abdominal pain, extremity pain. She has some sort of discomfort in the left chest, does feel somewhat short of breath. No fever, no chills. She did have breakfast this morning. Patient states her symptoms do not worsen necessarily with changing her position from seated to standing On examination: Regular rate and rhythm Lungs are clear Normal bowel sounds, abdomen is soft, nondistended. She is minimally tender in the left lower quadrant. She has well-healed surgical scars throughout. Closed but is not limited to: Anemia, dehydration, hypoglycemia, arrhythmia, ACS, PE (less likely). Will do: Labs EKG Orthostatic vital signs IV hydration Consider CTA chest EKG: NSR rate of 73bpm, axis nml, intervals nml, no ST elevation or depression, t waves upright 12/02/17 12:36 Laboratory Tests 12/02/17 12:16 WBC 6.2 Hgb 11.1 Hct 32.8 Plt Count 437 H D Neutrophils % 69.7 Lymphocytes % 21.3 D 12/02/17 13:51 Laboratory Tests 12/02/17 12/02/17 12:16 12:16 PT with INR 11.90 INR 1.05 BUN 17 Creatinine 0.5 L Creatine Kinase 36 Troponin I < 0.02 upon re assessment, pt states she feels much better Dizziness is better Unclear cause of pt initial presentation Will still do CTA If negative, pt can be discharged to home 12/02/17 15:04 Pt went to devops engineer called to say that this patient had an allergic reaction to prior Ct I do not believe this should hinder imaging Pt at this time does not want to repeat CT Pt feels better, no hypoxia, no tachycardia, presentation seems to be lower risk for PE??? Will sign out AMA Note: The patient insists on leaving the emergency dept and is signing out against medical advice. The patient understands the risks and complications that may result from the refusal of medical care and admission which includes and permanent disability. The patient has the mental capacity of understanding the risks of refusing care and is capable of making an informed decision. The patient was instructed to return to the emergency department should she change her mind regarding medical care or should her condition worsen. The patient signed the Against Medical Advice form. <Dori Mir - Last Filed: 12/03/17 12:03> *DC/Admit/Observation/Transfer - Attestations Scribe Attestion: 12/02/17 12:00 Documentation prepared by Jane Terrazas, acting as medical lab scientist for Dori Mir MD <Jane Terrazas - Last Filed: 12/02/17 11:54> - Discharge Dispostion Decision to Admit order: No <Dori Mir - Last Filed: 12/03/17 12:03> Diagnosis at time of Disposition: Dizziness - Discharge Dispostion Disposition: AGAINST MEDICAL ADVICE Condition at time of disposition: Stable - Referrals Referrals: Thu Shine MD [Primary Care Provider] - - Patient Instructions Printed Discharge Instructions: DI for Dizziness-Nonvertigo Additional Instructions: Thank you for coming in to the ER today Please be sure to follow up with your primary care physician and your surgeon Return to the ER for any other concerns or complaint
[2017-12-02] MEDS ORDERED: ONDANSETRON 4 MG/2 ML VIAL IVPUSH ONE (11:38)
[2017-12-02] MEDS ORDERED: SODIUM CHLORIDE 1,000 ML IV STA (11:38)
[2017-12-02] MEDS ORDERED: ONDANSETRON 4 MG/2 ML VIAL ONE (12:09)
[2017-12-02 12:23] LABS: BASO % 0.8 % (0-2.0); EOS % 3.2 % (0-4.5); HEMATOCRIT 32.8 % (32.4-45.2); HEMOGLOBIN 11.1 GM/dL (10.7-15.3); LYMPH % 21.3 % (8-40); MCH 27.9 pg (25.7-33.7); MCHC 33.8 g/dl (32.0-36.0); MEAN CELL VOLUME 82.7 fl (80-96); MEAN PLT VOLUME 7.3 fl (7.5-11.1); NEUT % 69.7 % (42.8-82.8); PLATELET COUNT 437 K/MM3 (134-434); RBC 3.97 M/mm3 (3.60-5.2); RDW 15.8 % (11.6-15.6); WHITE BLOOD COUNT 6.2 K/mm3 (4.0-10.0)
[2017-12-02 12:35] LABS: INR 1.05 (0.82-1.09); PROTHROMBIN TIME (PATIENT) 11.9 SEC (9.7-13.0)
[2017-12-02 12:47] LABS: ALBUMIN 3.3 g/dl (3.4-5.0); ANION GAP 6 (8-16); BILIRUBIN,TOTAL 0.2 mg/dL (0.2-1.0); BLOOD UREA NITROGEN 17 mg/dL (7-18); CALCIUM 8.6 mg/dL (8.5-10.1); CHLORIDE 106 mmol/L (98-107); CO2 31 mmol/L (21-32); CREATININE 0.5 mg/dL (0.55-1.02); GLUCOSE,RANDOM 96 mg/dL (74-106); POTASSIUM 3.7 mmol/L (3.5-5.1); SGOT/AST 23 U/L (15-37); SGPT/ALT 59 U/L (12-78); SODIUM 143 mmol/L (136-145); TOT PROT 6.8 g/dl (6.4-8.2)
[2017-12-02 12:49] LABS: ALK PHOS 101 U/L (45-117)
[2017-12-02 14:35] LABS: URINE APPEARANCE CLEAR; URINE BILIRUBIN NEGATIVE (<2.0 mg/dL); URINE COLOR STRAW; URINE GLUCOSE (UA) NEGATIVE (NEGATIVE); URINE KETONE NEGATIVE (NEGATIVE); URINE LEUK ESTERASE NEGATIVE (NEGATIVE); URINE NITRITE NEGATIVE (NEGATIVE); URINE PROTEIN NEGATIVE (NEGATIVE); URINE UROBILINOGEN NEGATIVE mg/dL (0.2-1.0)
[2017-12-02 15:30] VITALS: BP 111/66; PULSE 71; TEMP 98.1
--- NOTE | 2017-12-03 11:59 | EKG ---
Test Reason : Blood Pressure : / mmHG Vent. Rate : 073 BPM Atrial Rate : 073 BPM P-R Int : 198 ms QRS Dur : 102 ms QT Int : 392 ms P-R-T Axes : 053 012 017 degrees QTc Int : 431 ms NORMAL SINUS RHYTHM LOW VOLTAGE QRS BORDERLINE ECG WHEN COMPARED WITH ECG OF 10-NOV-2017 11:18, NO SIGNIFICANT CHANGE WAS FOUND Confirmed by MARK MANDEL MD ([id number]) on 12/03/2017 11:59:06 AM Referred By: Confirmed By:MARK MANDEL MD
== END 2017-12-02 15:31 | disposition left against medical advice (07) ==
LOC: JER 11:08
PROC: 3E033GC Introduction of Other Therapeutic Substance into Peripheral Vein, Percutaneous Approach (ICD-10-PCS; principal; 2017-12-02)
PROC: 3E0337Z Introduction of Electrolytic and Water Balance Substance into Peripheral Vein, Percutaneous Approach (ICD-10-PCS; 2017-12-02)
DX: R42 Dizziness and giddiness (principal)
CPT/HCPCS: 36415; 80053; 81003; 82550; 84484; 85025; 85610; 87086; 93005; 93010; 99284-25; J7030

== ENCOUNTER 2017-12-27 05:16 | Emergency (ER) | payer OTHER ==
[2017-12-27] MEDS ORDERED: METOCLOPRAMIDE HCL INJECTION 10 MG/2 ML VIAL IVPB ONE (05:27)
[2017-12-27] MEDS ORDERED: SODIUM CHLORIDE 1,000 ML IV STA (05:27)
--- NOTE | 2017-12-27 05:27 | PDOC ---
History of Present Illness - General Stated Complaint: NAUSEA/HEADACHE Time Seen by Provider: 12/27/17 05:23 History Source: Patient Exam Limitations: No Limitations - History of Present Illness Initial Comments: 12/27/17 05:47 Best Contact: PCP: Dr. Lester Pmhx: Recently diagnosed with colorectal July 2017 FH::[facility]- rectal resection 11/2017 Social Hx: Cigarettes/ 0 Alcohol/ 0 Drugs/0 LMP:N/A 52-year-old female presents to the ER with her complaining of right sided occipital pressure headache with nausea, photo and phonophobia but denies dizziness, lightheadedness, vomiting, fever, chills, facial pain, earache, sore throat, neck pain/stiffness, back pains, chest pain, shortness of breath, abdominal pain, extremity numbness or tingling sensation. Patient states the pain started a day after taking her she will medication/Capecitabine 500mg. Past History - Past Medical History Allergies/Adverse Reactions: Allergies Allergy/AdvReac Type Severity Reaction Status Date / Time No Known Allergies Allergy Verified 12/27/17 05:27 Home Medications: Ambulatory Orders Capecitabine [Xeloda -] 1,500 mg PO BID 12/27/17 Cancer: Yes (colon) COPD: No DVT: No Dementia: No - Immunization History Immunization Up to Date: Yes - Suicide/Smoking/Psychosocial Hx Smoking History: Never smoked Have you smoked in the past 12 months: No Hx Alcohol Use: No Drug/Substance Use Hx: No Substance Use Type: None Review of Systems - Review of Systems Able to Perform ROS?: Yes Comments:: 12/27/17 05:52 CONSTITUTIONAL: Absent: fever, chills, diaphoresis, generalized weakness, malaise, loss of appetite HEENT: Absent: rhinorrhea, nasal congestion, throat pain, throat swelling, difficulty swallowing, mouth swelling, ear pain, eye pain, visual Changes CARDIOVASCULAR: Absent: chest pain, loss of consciousness, palpitations, irregular heart rate, peripheral edema RESPIRATORY: Absent: cough, shortness of breath, dyspnea with exertion, orthopnea, wheezing, stridor, hemoptysis GASTROINTESTINAL: Absent: abdominal pain, abdominal distension, nausea, vomiting, diarrhea, constipation, melena, hematochezia GENITOURINARY: Absent: dysuria, frequency, urgency, hesitancy, hematuria, flank pain, genital pain MUSCULOSKELETAL: Absent: myalgia, arthralgia, joint swelling SKIN: Absent: rash, itching, pallor HEMATOLOGIC/IMMUNOLOGIC: Absent: easy bleeding, easy bruising, lymphadenopathy, frequent infections ENDOCRINE: Absent: unexplained weight gain, unexplained weight loss, heat intolerance, cold intolerance NEUROLOGIC: +Right occipital pinon Absent focal weakness or paresthesias, dizziness, unsteady gait, seizure, mental status changes, bladder or bowel incontinence PSYCHIATRIC: Absent: anxiety, depression, suicidal or homicidal ideation, hallucinations. Is the patient limited Maltese proficient: No *Physical Exam - Physical Exam Comments: 12/27/17 05:52 GENERAL: Well developed, well nourished. Awake and alert. No acute distress. HEENT: Normocephalic, atraumatic. PERRLA, EOMI. No conjunctival pallor. Sclera are non- icteric. Moist mucous membranes. Oropharynx is clear. NECK: Supple. Full ROM. No JVD. Carotid pulses 2+ and symmetric, without bruits. No thyromegaly. No lymphadenopathy. CARDIOVASCULAR: Regular rate and rhythm. No murmurs, rubs, or gallops. Distal pulses are 2+ and symmetric. PULMONARY: No evidence of respiratory distress. Lungs clear to auscultation bilaterally. No wheezing, rales or rhonchi. ABDOMINAL: Soft. Non-tender. Non-distended. No rebound or guarding. No organomegaly. Normoactive bowel sounds. MUSCULOSKELETAL Normal range of motion at all joints. No bony deformities or tenderness. No CVA tenderness. EXTREMITIES: No cyanosis. No clubbing. No edema. No calf tenderness. SKIN: Warm and dry. Normal capillary refill. No rashes. No jaundice. NEUROLOGICAL: Alert, awake, appropriate. Cranial nerves 2-12 intact. No deficits to light touch and temperature in face, upper extremities and lower extremities. No motor deficits in the in face, upper extremities and lower extremities. Normoreflexic in the upper and lower extremities. Normal speech. Toes are down- going bilaterally. Gait is normal without ataxia. PSYCHIATRIC: Cooperative. Good eye contact. Appropriate mood and affect. ED Treatment Course - LABORATORY CBC & Chemistry Diagram: 12/27/17 05:27 12/27/17 05:27 *DC/Admit/Observation/Transfer Diagnosis at time of Disposition: Nausea Headache Qualifiers: Headache type: other headache syndrome Qualified Code(s): G44.89 - Other headache syndrome - Discharge Dispostion Disposition: HOME Condition at time of disposition: Stable Decision to Admit order: No - Referrals Referrals: Thu Shine MD [Primary Care Provider] - - Patient Instructions Additional Instructions: Rest Increase fluids Follow with your doctor Return back to the ER as needed - Post Discharge Activity
[2017-12-27 05:29] VITALS: BP 114/79; PULSE 79; TEMP 97.9; BMI 27.6
[2017-12-27] MEDS ORDERED: METOCLOPRAMIDE HCL INJECTION 10 MG/2 ML VIAL ONE (05:42)
[2017-12-27 05:48] LABS: BASO % 0.6 % (0-2.0); EOS % 0.9 % (0-4.5); HEMATOCRIT 37.6 % (32.4-45.2); HEMOGLOBIN 12.8 GM/dL (10.7-15.3); LYMPH % 25.7 % (8-40); MEAN CELL VOLUME 82.4 fl (80-96); MEAN PLT VOLUME 7.5 fl (7.5-11.1); MONO % 10.4 % (3.8-10.2); NEUT % 62.4 % (42.8-82.8); PLATELET COUNT 250 K/MM3 (134-434); RBC 4.56 M/mm3 (3.60-5.2); RDW 16.6 % (11.6-15.6); WHITE BLOOD COUNT 4.1 K/mm3 (4.0-10.0)
[2017-12-27 06:13] LABS: ALBUMIN 3.9 g/dl (3.4-5.0); ALK PHOS 101 U/L (45-117); ANION GAP 6 (8-16); BILIRUBIN,TOTAL 0.6 mg/dL (0.2-1.0); BLOOD UREA NITROGEN 17 mg/dL (7-18); CALCIUM 9.2 mg/dL (8.5-10.1); CHLORIDE 102 mmol/L (98-107); CO2 31 mmol/L (21-32); CREATININE 0.5 mg/dL (0.55-1.02); GLUCOSE,RANDOM 99 mg/dL (74-106); POTASSIUM 4.1 mmol/L (3.5-5.1); SGOT/AST 17 U/L (15-37); SGPT/ALT 47 U/L (12-78); SODIUM 139 mmol/L (136-145); TOT PROT 7.3 g/dl (6.4-8.2)
== END 2017-12-27 07:00 | disposition home or self-care (01) ==
LOC: JER 05:16
PROC: 3E033GC Introduction of Other Therapeutic Substance into Peripheral Vein, Percutaneous Approach (ICD-10-PCS; principal; 2017-12-27)
PROC: 3E0337Z Introduction of Electrolytic and Water Balance Substance into Peripheral Vein, Percutaneous Approach (ICD-10-PCS; 2017-12-27)
DX: G44.89 Other headache syndrome (principal); Z85.038 Personal history of other malignant neoplasm of large intestine
CPT/HCPCS: 36415; 80053; 85025; 96361; 96374; 96375; 99282-25; J7030

== ENCOUNTER 2018-02-13 07:35 | Emergency (ER) | payer OTHER ==
[2018-02-13 07:44] VITALS: TEMP 97.4; BMI 26.6
--- NOTE | 2018-02-13 07:56 | PDOC ---
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 She was also feeling weak, light-headed and had 2 episodes of NBNB vomiting this morning. Pt states the pain in her chest and back was "burning and she felt hot," but did not radiate, and was not associated with diaphoresis or nausea. The pt denies any history of acid reflux. She has been seen at [facility] for chemotherapy, and takes chemo every 3 weeks (oxaliplatin) and PO medication every other week (xeloda). She did not take any anti-nausea medication or pain medication at home. There are no exacerbating or alleviating factors, and she states the "feeling hot" is limited to her chest and back, and does not feel like hot flashes. She denies any other recent fevers/chills, changes in vision, headache, abdominal pain, diarrhea, or leg swelling. 02/13/18 10:21 Past History - Travel Traveled outside of the country in the last 30 days: No Close contact w/someone who was outside of country & ill: No - Past Medical History Allergies/Adverse Reactions: Allergies Allergy/AdvReac Type Severity Reaction Status Date / Time No Known Allergies Allergy Verified 02/13/18 07:43 Home Medications: Ambulatory Orders Capecitabine [Xeloda -] 1,500 mg PO BID 12/27/17 Anemia: No Cancer: Yes (colon) Hx Myocardial Infarction: No CVA: No COPD: No CHF: No DVT: No Dementia: No Diabetes: No Dialysis: No - Surgical History Abdominal Surgery: Yes (hemicolectomy 11/2017) - Reproductive History LMP comment: 3-4 years ago - Immunization History Immunization Up to Date: Yes - Suicide/Smoking/Psychosocial Hx Smoking History: Never smoked Have you smoked in the past 12 months: No Hx Alcohol Use: No Drug/Substance Use Hx: No Substance Use Type: None Review of Systems - Review of Systems Able to Perform ROS?: Yes Comments:: 02/13/18 10:52 assisted with translation Is the patient limited Kazakh proficient: No Constitutional: Yes: Weakness, Weight Stable. No: Chills, Diaphoresis, Fever, Loss of Appetite HEENTM: No: Blurred Vision, Recent change in vision, Double Vision, Hearing Loss , Throat Pain, Difficulty Swallowing Respiratory: Yes: Shortness of Breath (SOB with walking), SOB with Exertion. No : Cough, Orthopnea, Wheezing, Productive cough, Hemoptysis Cardiac (ROS): Yes: Chest Pain (burning chest & back pain, no radiation), Lightheadedness. No: Edema, Irregular Heart Rate, Palpitations, Syncope, Chest Tightness ABD/GI: Yes: Constipated (Last BM yesterday, has had constipation since hemicolectomy), Nausea, Vomiting (2 episodes vomiting this morning). No: Abdominal Distended, Diarrhea, Poor Appetite, Poor Fluid Intake : Yes: Dysuria. No: Burning, Frequency, Flank Pain, Hematuria, Pain, Urgency Musculoskeletal: No: Back Pain, Joint Pain Integumentary: No: Bruising, Rash Neurological: No: Headache, Numbness, Seizure, Unsteady Gait, Dizziness Psychiatric: No: Sleep Pattern Change, Change in Appetite Endocrine: No: Increased Urine, Change in Weight Hematologic/Lymphatic: No: Anemia, Blood Clots, Easy Bleeding, Easy Bruising All Other Systems: Reviewed and Negative *Physical Exam - Vital Signs Last Vital Signs Temp Pulse Resp BP Pulse Ox 97.4 F L 91 H 18 124/90 100 02/13/18 07:40 02/13/18 07:40 02/13/18 07:40 02/13/18 07:40 02/13/18 07:40 - Physical Exam General Appearance: Yes: Nourished, Appropriately Dressed. No: Apparent Distress HEENT: positive: EOMI, DEIDRE, Normal ENT Inspection, Normal Voice, Symmetrical, Pharynx Normal, Hearing Grossly Normal. negative: Pale Conjunctivae, Scleral Icterus (R), Scleral Icterus (L), Tonsillar Exudate, Lesions Neck: positive: Trachea midline, Normal Thyroid, Supple. negative: Tender, Rigid, Lymphadenopathy (R), Lymphadenopathy (L) Respiratory/Chest: positive: Lungs Clear, Normal Breath Sounds. negative: Chest Tender, Respiratory Distress, Accessory Muscle Use Cardiovascular: positive: Regular Rhythm, Regular Rate, S1, S2. negative: Edema , JVD, Murmur Vascular Pulses: Dorsalis-Pedis (R): 4+, Doralis-Pedis (L): 4+ Gastrointestinal/Abdominal: positive: Normal Bowel Sounds, Flat, Soft. negative : Tender, Organomegaly, Pulsatile Mass, Guarding, Rebound Lymphatic: negative: Adenopathy, Tenderness Musculoskeletal: positive: Normal Inspection. negative: CVA Tenderness Extremity: positive: Normal Capillary Refill, Normal Inspection, Normal Range of Motion, Pelvis Stable. negative: Tender, Pedal Edema, Swelling, Erythema Integumentary: positive: Normal Color, Dry, Warm. negative: Mottled, Petechiae , Ecchymosis, Bruising Neurologic: positive: area director of home health sales II-XII NML intact, Fully Oriented, Alert, Normal Mood/ Affect, Normal Response, Motor Strength 5/5. negative: EOM Palsy, Facial Droop , Numbness, Sensory Deficit Heart Score/ECG Review - History History: Slightly suspicious (burning chest pain, no cardiac history) - Electrocardiogram EKG: Normal - Age Age: 45-65 - Risk Factors Based on the list above the patient has:: No risk factors known - Troponin Troponin: </= normal limit - Score Heart Score - Total: 1 - [place]: Normal - P and IN Prominent R with upright T in V1 (true posterior RI): No Delta Wave(s) Present: No WPW: No - QRS Poor R Wave Progression: No Q Wave Present: No - ST and T Early Repolarization: No Non Specific ST-T Wave changes: No Flattened T Waves: No Prolonged Q-T Interval: No - ECG Impressions Normal ECG: Yes Non-specific ST Elevation: No Ischemic Changes: No Bradycardia: No Torsades claudine Pointes: No WPW: No ED Treatment Course - LABORATORY CBC & Chemistry Diagram: 02/13/18 09:04 02/13/18 09:04 - RADIOLOGY Radiology Studies Ordered: Chest x-ray - normal CTA 02/13/18 12:27 Medical Decision Making - Medical Decision Making Pt was seen at bedside and also seen by Dr. Cabrera. Pt comfortable and able to lie flat in bed. No nausea, vomiting, or chest pain at this time. Ordered CBC , CMP, THANH/troponin, UA + culture, chest x-ray to determine ACS vs reflux. Low suspicion for PE and pneumonia, as pt denies recent fevers/chill, cough, or localized chest pain. Ordered 1L NS and 4 mg IV zofran for nausea and vomiting. UA and culture to r/o UTI due to dysuria. LMP 4-5 years ago, pt post- menopausal. 02/13/18 09:03 Pt chest pain and nausea improved after 1 L NS and zofran. Collected urine sample for UA and culture. Pt going to x-ray. CBC: Plt 39, CMP: K 3.[address] Torri Gee at [facility] ([phone]). Chemo is done every 3 weeks (next apt 02/25/2018), oxaliplatin. Will call [facility] to discuss case with Dr. Gee and see if he offers any suggestions or has concern for pt platelet counts. Will order CTA of chest to r/o PE since pt complains of SOB with walking. Spoke to Dr. Gee office (doctor marketing consultant for Dr. Gee), they state her last platelet count on 02/04 was in 220s, and recommended a smear since her H/H and WBC levels were normal. Called lab for smear. 02/13/18 10:08 Manual smear for platelets showed decreased count, no clumping. Will await CTA results and contact Heme/Onc on-call to determine if further work-up for reduced platelets is required. 02/13/18 12:16 CTA negative. Will page heme/onc to determine need for work-up/recommendations. 02/13/18 12:30 Calling Heme-Onc on-call Dr. Polo. Left message for call-back. 02/13/18 12:[address] Polo, who stated pt can go home today and does not require further work-up for platelet count. He said platelet count should increase after next chemotherapy appointment and to follow-up with her oncologist at [facility]. 02/13/18 12:50 *DC/Admit/Observation/Transfer Diagnosis at time of Disposition: Atypical chest pain, Light-headedness, Shortness of breath on exertion Colon cancer Qualifiers: Colon location: descending Qualified Code(s): C18.6 - Malignant neoplasm of descending colon - Discharge Dispostion Disposition: HOME Condition at time of disposition: Improved Decision to Admit order: No - Referrals Referrals: Amy Bryant MD [Primary Care Provider] - - Patient Instructions Printed Discharge Instructions: DI for Atypical Chest Pain, DI for Shortness of Breath Additional Instructions: You were seen in the ER today for chest pain and shortness of breath. Please follow-up with your oncologist and primary care physician to discuss your visit today. Please return to the ER if you have any worsening shortness of breath or chest pain, continued nausea/vomiting, inability to tolerate food or fluids, bleeding or bruising, or any other concerns. Print Language: JORDANIAN - Post Discharge Activity
--- NOTE | 2018-02-13 08:10 | PDOC ---
Attending Attestation - HPI HPI: 02/13/18 08:41 The patient is a 52 year old female, with a recent past medical history of ascending colon cancer(s/p hemicolectomy, on chemotherapy[3 sessions thus far]) , who presents to the emergency department with nausea, vomiting, and burning in the chest for several days. The patient reports she has been experiencing nausea, vomiting, and headache since her last chemo on January 2019. Today, patient endorses 2 episodes of emesis(nonbloody, nonbilious), but denies any associated abdominal pain, diarrhea, constipation, melena, or hematochezia. She reports some chest burning, but denies any shortness of breath, or palpitations. She endorses hot flashes(different from menopause) and lightheadedness, but denies any fever, chills, cough, or dizziness. She reports some dysuria, but denies any hematuria, frequency, or urgency. Patient reports she was lasted evaluated in the ED in December for similar symptoms, except she had no chest discomfort at the time. She denies any history of cardiovascular disease or GERD. She denies any recent travel or sick contacts. Allergies: NKDA Past Surgical History: Hemicolectomy Social History: Non smoker. No ETOH or recreational drug use - Medical Decision Making 02/13/18 08:41 Documentation prepared by Celine Wood, acting as medical instrument cable fabricator for Dulce Cabrera MD. <Celine Wood - Last Filed: 02/13/18 08:41> - Resident Resident Name: Jen Pierson - ED Attending Attestation I have performed the following: I have examined & evaluated the patient, The case was reviewed & discussed with the resident, I agree w/resident's findings & plan - Physicial Exam PE: GENERAL: Awake, alert, and fully oriented, in no acute distress HEAD: No signs of trauma EYES: PERRLA, EOMI, sclera anicteric, conjunctiva clear ENT: Auricles normal inspection, hearing grossly normal, nares patent, oropharynx clear without exudates. Moist mucosa NECK: Normal ROM, supple, no lymphadenopathy, JVD, or masses LUNGS: Breath sounds equal, clear to auscultation bilaterally. No wheezes, and no crackles HEART: Regular rate and rhythm, normal S1 and S2, no murmurs, rubs or gallops ABDOMEN: Soft, nontender, normoactive bowel sounds. No guarding, no rebound. No masses. +Midline lower abdominal scar, well-healed. EXTREMITIES: Normal range of motion, no edema. No clubbing or cyanosis. No cords, erythema, or tenderness NEUROLOGICAL: Cranial nerves II through XII grossly intact. Normal speech, normal gait SKIN: Warm, Dry, normal turgor, no rashes or lesions noted. - Medical Decision Making 02/13/18 09:18 Pt with history colon CA, presenting with nausea, epigastric pain, recent chest burning/SOB. She denies any leg swelling, travel, fever. She is on oral chemo daily, also receives IV chemo, last dose 02/04. Will obtain labs including cardiacs, CXR, EKG. Will obtain sono. This would be an atypical presentation for PE, however, it is on the differential. 02/13/18 12:14 CTA pending. Pt found to have low platelet count that is new onset as per discussion with her heme/onc at [facility]. Will await CTA results then discuss with heme/onc simulation analyst. <Dulce Cabrera - Last Filed: 02/13/18 12:15>
[2018-02-13] MEDS ORDERED: ONDANSETRON 4 MG/2 ML VIAL IVPUSH ONE (08:40)
[2018-02-13] MEDS ORDERED: SODIUM CHLORIDE 1,000 ML IV STA (08:40)
[2018-02-13] MEDS ORDERED: ONDANSETRON 4 MG/2 ML VIAL ONE (09:13)
[2018-02-13 09:16] LABS: BASO % 0.8 % (0-2.0); EOS % 0.8 % (0-4.5); HEMATOCRIT 35.8 % (32.4-45.2); HEMOGLOBIN 12.6 GM/dL (10.7-15.3); LYMPH % 20.9 % (8-40); MCH 28.8 pg (25.7-33.7); MCHC 35.2 g/dl (32.0-36.0); MEAN CELL VOLUME 81.6 fl (80-96); MEAN PLT VOLUME 9.5 fl (7.5-11.1); MONO % 11.9 % (3.8-10.2); NEUT % 65.6 % (42.8-82.8); PLATELET COUNT 39 K/MM3 (134-434); RBC 4.39 M/mm3 (3.60-5.2); RDW 15.9 % (11.6-15.6); WHITE BLOOD COUNT 4.5 K/mm3 (4.0-10.0)
[2018-02-13 09:41] LABS: ALBUMIN 3.4 g/dl (3.4-5.0); ANION GAP 9 (8-16); BILIRUBIN,TOTAL 0.6 mg/dL (0.2-1.0); BLOOD UREA NITROGEN 12 mg/dL (7-18); CALCIUM 8.6 mg/dL (8.5-10.1); CHLORIDE 106 mmol/L (98-107); CO2 27 mmol/L (21-32); CREATININE 0.4 mg/dL (0.55-1.02); GLUCOSE,RANDOM 92 mg/dL (74-106); POTASSIUM 3.3 mmol/L (3.5-5.1); SGOT/AST 38 U/L (15-37); SGPT/ALT 57 U/L (12-78); SODIUM 142 mmol/L (136-145); TOT PROT 6.5 g/dl (6.4-8.2)
[2018-02-13 09:43] LABS: ALK PHOS 156 U/L (45-117)
[2018-02-13 10:24] LABS: URINE APPEARANCE CLEAR; URINE BILIRUBIN NEGATIVE (<2.0 mg/dL); URINE COLOR COLORLESS; URINE GLUCOSE (UA) NEGATIVE (NEGATIVE); URINE KETONE NEGATIVE (NEGATIVE); URINE LEUK ESTERASE NEGATIVE (NEGATIVE); URINE NITRITE NEGATIVE (NEGATIVE); URINE PROTEIN NEGATIVE (NEGATIVE); URINE UROBILINOGEN NEGATIVE mg/dL (0.2-1.0)
[2018-02-13 12:09] LABS: PLATELET ESTIMATE DECREASED
[2018-02-13 13:12] VITALS: BP 98/85; PULSE 70
--- NOTE | 2018-02-15 10:37 | EKG ---
Test Reason : Blood Pressure : / mmHG Vent. Rate : 078 BPM Atrial Rate : 078 BPM P-R Int : 168 ms QRS Dur : 096 ms QT Int : 376 ms P-R-T Axes : 037 016 002 degrees QTc Int : 428 ms NORMAL SINUS RHYTHM LOW VOLTAGE QRS BORDERLINE ECG WHEN COMPARED WITH ECG OF 02-DEC-2017 12:16, NO SIGNIFICANT CHANGE WAS FOUND Confirmed by KATIE GRANDE MD ([id number]) on 02/15/2018 10:36:46 AM Referred By: Confirmed By:KATIE GRANDE MD
== END 2018-02-13 13:12 | disposition home or self-care (01) ==
LOC: JER 07:35
PROC: 3E033GC Introduction of Other Therapeutic Substance into Peripheral Vein, Percutaneous Approach (ICD-10-PCS; principal; 2018-02-13)
DX: R07.9 Chest pain, unspecified (principal); C18.6 Malignant neoplasm of descending colon; Z90.49 Acquired absence of other specified parts of digestive tract; D69.6 Thrombocytopenia, unspecified
CPT/HCPCS: 36415; 71046-TC-FY; 71275-TC; 80053; 81003; 84484; 85025; 87086; 93005; 93010; 96374; 99282-25; J7030